=== PATIENT | male | born 1995 | race American Indian/Alaskan Native ===

== ENCOUNTER 2021-02-09 15:17 | Inpatient (IN) | payer OTHER ==
[2021-02-09] MEDS ORDERED: IPRATROPIUM 0.02% NEBU 2.5 ML IH ONE ×2 (15:28→15:34)
[2021-02-09] MEDS ORDERED: ALBUTEROL 2.5 MG/3 ML NEBU IH ONE ×4 (15:28→17:53)
[2021-02-09] MEDS ORDERED: MAGNESIUM SULFATE 2 GM/50 ML BAG IV ONE (15:34)
[2021-02-09] MEDS ORDERED: LACTATED RINGERS 1,000 ML IV ONE (15:34)
[2021-02-09] MEDS ORDERED: EPINEPHrine/PF 1 MG/1 ML INJ SUB-Q ONE ×2 (15:34→16:10)
[2021-02-09] MEDS ORDERED: methylPREDNISolone Sod Succinate 125 MG/2 ML INJ IV ONE (15:34)
--- NOTE | 2021-02-09 15:46 | Emergency Department Report ---
ED Asthma HPI - General Chief Complaint: Adult Asthma Stated Complaint: ASTHMA PUI?: No Time Seen by Provider: 02/09/21 15:29 Source: patient Mode of arrival: Ambulatory Limitations: No Limitations - History of Present Illness Initial Comments: The patient is a 25-year-old gentleman. He is not known to myself previously. He has a history of pediatric diagnosed asthma. He has been admitted while a child, but not as an adult. He has no lifetime history of intubations. He has a history of recreational cannabis consumption, but otherwise denies smoke ingestion. He has not received his COVID-19 vaccination. He presents to the ER with a chief complaint of asthma, cough, shortness of breath, wheezing. He has used his albuterol at home with some, but not complete improvement. He denies loss of taste, loss of smell, fever, and physical pain. Denies leg pain, leg swelling, physical pain, DVT and pulmonary embolism risk factors. Triggers for asthma include change of seasons, pollen, nonspecific allergens. He feels like this is similar to prior asthma exacerbations. MD Complaint: "asthma attack", shortness of breath, wheezing -: Gradual, days(s) Asthma History: childhood onset Severity: moderate, similar to prior Context: allergen exposure Associated Symptoms: dry cough Treatments Prior to Arrival: inhaled bronchodilator - Related Data Allergies Allergy/AdvReac Type Severity Reaction Status Date / Time No Known Allergies Allergy Unverified 02/09/21 15:20 ED Review of Systems ROS: Stated complaint: ASTHMA Other details as noted in HPI Constitutional: denies: fever Eyes: denies: eye discharge ENT: denies: epistaxis Respiratory: cough, shortness of breath, SOB with exertion, SOB at rest, wheezing Cardiovascular: denies: chest pain Musculoskeletal: denies: arthralgia Neurological: weakness Psychiatric: anxiety Hematological/Lymphatic: denies: easy bleeding ED Past Medical Hx - Past Medical History Previous Medical History?: Yes Hx Asthma: Yes ED Physical Exam - General Limitations: No Limitations General appearance: alert, anxious, in distress, obese - Head Head exam: Present: atraumatic, normocephalic - Eye Eye exam: Present: normal appearance, EOMI. Absent: nystagmus - ENT ENT exam: Present: normal exam, normal orophraynx, mucous membranes moist, normal external ear exam - Neck Neck exam: Present: normal inspection, full ROM. Absent: tenderness, meningismus - Respiratory Respiratory exam: Present: respiratory distress, wheezes, rhonchi, accessory muscle use - Cardiovascular Cardiovascular Exam: Present: normal rhythm, tachycardia, normal heart sounds. Absent: bradycardia, irregular rhythm, systolic murmur, diastolic murmur, rubs, gallop - GI/Abdominal GI/Abdominal exam: Present: soft. Absent: distended, tenderness, guarding, rebound, rigid, pulsatile mass - Rectal Rectal exam: Present: deferred - Extremities Exam Extremities exam: Present: normal inspection, full ROM, other (2+ pulses noted in the bilateral upper and lower extremities. There is no palpable cord. negative Homans sign. Muscular compartments are soft. The pelvis is stable.). Absent: pedal edema, calf tenderness - Back Exam Back exam: Present: normal inspection, full ROM. Absent: tenderness, CVA tenderness (R), CVA tenderness (L), paraspinal tenderness, vertebral tenderness - Neurological Exam Neurological exam: Present: alert, oriented X3, normal gait, other (No facial droop. Tongue midline. Extraocular movements intact bilaterally. Facial sensation intact to light touch in V1, V2, V3 distribution bilaterally. 5 and a 5 strength in 4 extremities. Sensation intact to light touch in 4 ext remities.). Absent: motor sensory deficit - Psychiatric Psychiatric exam: Present: anxious - Skin Skin exam: Present: warm, dry, intact, normal color. Absent: rash ED Course Vital Signs 02/09/21 02/09/21 02/09/21 15:23 15:33 17:54 Temperature 98.3 F Pulse Rate 114 H Pulse Rate [ 115 H Anterior Bilateral Throughout] Respiratory 30 H Rate Respiratory 26 H Rate [Anterior Bilateral Throughout] Blood Pressure 132/112 [Right] O2 Sat by Pulse 95 Oximetry O2 Sat by Pulse 91 Oximetry [ Digit-Finger] - Reevaluation(s) Reevaluation #1: 02/09/21 15:39 Differential diagnosis, including the not limited to: Asthma exacerbation, history of cannabis use Assessment and plan: 25-year-old gentleman, who is tachypneic and tachycardic, however, denies DVT and pulmonary embolism risk factors, who is low risk by Wells criteria for pulmonary embolism, with a known history of asthma and reactive airways disease, who is likely presenting with an asthma exacerbation. 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 Start albuterol, Atrovent, steroids, magnesium, and subcutaneous epinephrine. I have discussed this plan of care with the patient. He has articulated unders tanding. Reassess after initial interventions. 02/09/21 15:47 We appreciate that the patient meets systemic inflammatory response syndrome criteria. Do not suspect invasive bacterial infection. Suspect that physiologic abnormality secondary to acute asthma exacerbation. 02/09/21 16:19 Patient is still receiving albuterol Atrovent, but has completed steroids, magnesium infusion almost complete, and he is also received his epinephrine. He is still wheezing, tachypneic and short of breath. EKG, chest x-ray, laboratory studies, repeat subcutaneous epinephrine ordered. 02/09/21 17:53 Final reassessment. Patient has received epinephrine x2, albuterol, Atrovent, steroids and magnesium. His work of breathing has improved, however he is still wheezing, and still has accessory muscle use. Laboratory studies unremarkable. Chest x-ray reviewed and appreciated. Peak flow 130 LPM. Patient meets criteria for admission and hospitalization secondary to the aforementioned. I have discussed this plan of care with the patient. He is agreeable. Hospital physician is paged to arrange admission. 02/09/21 18:02 Dr Coelho to admit to [facility] - Pulse Oximetry Interpretation Digit-Finger Initial Pulse Oximetry Readin O2 Sat by Pulse Oximetry: 91 Actions Taken: other (placed on non rebreather) ED Medical Decision Making - Lab Data Result diagrams: 02/09/21 16:18 02/09/21 16:18 Vital Signs 02/09/21 15:23 Temperature 98.3 F Pulse Rate 114 H Respiratory 30 H Rate Blood Pressure 132/112 [Right] O2 Sat by Pulse 95 Oximetry - EKG Data -: EKG Interpreted by Tn EKG shows normal: sinus rhythm Rate: tachycardia - EKG Data When compared to previous EKG there are: previous EKG unavailable 02/09/21 16:31 The EKG is interpreted at 16: 25 Sinus rhythm, tachycardia, rate 105 bpm. There is a borderline rightward axis deviation, the QTC is 450 ms, there is no motion artifact. There is borderline poor R wave progression. This is an abnormal EKG. This is not a STEMI. There is no prior for comparison. - Radiology Data Radiology results: pending, report reviewed, image reviewed [facility] [address] [place] [address] XRay Report Signed Patient: DANNY TREJO MR#: [id number] : 1995 Acct:[id number] Age/Sex: 25 / M ADM Date: 02/09/21 Loc: ED Attending Dr: Ordering Physician: YAJAIRA SANCHEZ MD Date of Service: 02/09/21 Procedure(s): XR chest 1V ap Accession Number(s): [id number] cc: YAJAIRA SANCHEZ MD Fluoro Time In Minutes: CHEST 1 VIEW INDICATION: dyspnea asthma. COMPARISON: None. FINDINGS: Support devices: None. Heart: Normal. Lungs/Pleura: Streaky densities in the right suprahilar lung are likely atelectatic. Lungs are otherwise clear. No pleural abnormality. IMPRESSION: 1. Presumed atelectasis in the perihilar right upper lobe. Signer Name: Errol Singh MD Signed: 02/09/2021 5:39 PM Workstation Name: [id number] Transcribed By: MICHELLE Dictated By: Errol Singh MD Electronically Authenticated By: Errol Singh MD Signed Date/Time: 02/09/211738 DD/ 38 Critical Care Time: Yes Critical care time in (mins) excluding proc time.: 35 Critical care attestation.: If time is entered above; I have spent that time in minutes in the direct care of this critically ill patient, excluding procedure time. ED Disposition Clinical Impression: Asthma exacerbation Qualifiers: Asthma severity: severe Asthma persistence: unspecified Qualified Code(s): J45.901 - Unspecified asthma with (acute) exacerbation Disposition: OP ADMIT IP TO THIS HOSP Is pt being admited?: Yes Does the pt Need Aspirin: No Condition: Good Referrals: PRIMARY CARE, [Primary Care Provider] - 3-5 Days
[2021-02-09 16:38] LABS: Basophils % (Auto) 0.4 % (0.0-1.8); Eosinophils # (Auto) 0.3 K/mm3 (0.0-0.4); Eosinophils % (Auto) 4.2 % (0.0-4.3); Hematocrit 41.3 % (35.5-45.6); Hemoglobin 13.7 gm/dl (11.8-15.2); Lymphocytes # (Auto) 1.1 K/mm3 (1.2-5.4); Lymphocytes % (Auto) 15.9 % (13.4-35.0); Mean Corpuscular HGB Conc 33 % (32-34); Mean Corpuscular Volume 90 fl (84-94); Monocytes # (Auto) 0.4 K/mm3 (0.0-0.8); Monocytes % (Auto) 6.1 % (0.0-7.3); Platelet Count 187 K/mm3 (140-440); Red Blood Count 4.61 M/mm3 (3.65-5.03)
[2021-02-09 16:48] LABS: INR 0.92 (0.87-1.13)
[2021-02-09 16:59] LABS: BUN/Creatinine Ratio 7; Blood Urea Nitrogen 8 mg/dL (9-20); Calcium 8.3 mg/dL (8.4-10.2); Hemolysis Index 12
--- NOTE | 2021-02-09 17:44 | XRay Report ---
CHEST 1 VIEW INDICATION: dyspnea asthma. COMPARISON: None. FINDINGS: Support devices: None. Heart: Normal. Lungs/Pleura: Streaky densities in the right suprahilar lung are likely atelectatic. Lungs are otherw ise clear. No pleural abnormality. IMPRESSION: 1. Presumed atelectasis in the perihilar right upper lobe. Signer Name: Errol Singh MD Signed: 02/09/2021 5:39 PM Workstation Name: [email or web address]
[2021-02-09] MEDS ORDERED: HYDROmorphone 1 MG/1 ML INJ IV PRN (19:10)
[2021-02-09] MEDS ORDERED: METOCLOPRAMIDE 10 MG/2 ML INJ IV PRN (19:10)
[2021-02-09] MEDS ORDERED: ONDANSETRON 4 MG/2 ML INJ IV PRN (19:10)
[2021-02-09] MEDS ORDERED: ACETAMINOPHEN 325 MG TAB PO PRN (19:10)
--- NOTE | 2021-02-09 19:10 | History and Physical Report ---
History of Present Illness Date of examination: 02/09/21 Date of admission: 02/09/21 18:02 Chief complaint: Increasing wheezing and shortness of breath for 2 days History of present illness: 25-year-old -Mong[place]ian male with history of asthma since childhood and was been admitted a couple of times in the past comes in for increasing shortness of breath and wheezing for the last 2 days. Not improving with nebulizers/inhalers. Cough productive of mucoid sputum. No fever or chills. No body aches. No loss of smell. Triggers for asthma include change of seasons and the pollen and nonspecific allergens. Patient takes Singulair for prevention of asthma. Patient has a nebulizer machine at home. - Past Medical History Previous Medical History?: Yes --Asthma: Yes Past surgical history No Family history Htn Social history No smoking or alcohol Review of Systems ROS: Stated complaint: ASTHMA Other details as noted in HPI Constitutional: denies: fever Eyes: denies: eye discharge ENT: denies: epistaxis Respiratory: cough, shortness of breath, SOB with exertion, SOB at rest, wheezing Cardiovascular: denies: chest pain Musculoskeletal: denies: arthralgia Neurological: weakness Psychiatric: anxiety Hematological/Lymphatic: denies: easy bleeding Medications and Allergies Allergies Allergy/AdvReac Type Severity Reaction Status Date / Time No Known Allergies Allergy Unverified 02/09/21 15:20 Exam - Constitutional Vitals: Temp Pulse Resp BP Pulse Ox 98.3 F 115 H 26 H 132/112 91 02/09/21 15:23 02/09/21 15:33 02/09/21 15:33 02/09/21 15:23 02/09/21 18:02 General appearance: Present: mild distress, well-nourished - EENT Eyes: Present: PERRL ENT: hearing intact, clear oral mucosa - Neck Neck: Present: supple, normal ROM - Respiratory Respiratory effort: normal Respiratory: bilateral: CTA, rhonchi, wheezing - Cardiovascular Heart rate: 78 Rhythm: regular Heart Sounds: Present: S1 & S2. Absent: rub, click - Extremities Extremities: pulses symmetrical, No edema Peripheral Pulses: within normal limits - Abdominal General gastrointestinal: Present: soft, non-tender, non-distended, normal bowel sounds Male genitourinary: Present: normal - Rectal Rectal Exam: deferred - Integumentary Integumentary: Present: clear, warm, dry - Musculoskeletal Musculoskeletal: gait normal, strength equal bilaterally - Psychiatric Psychiatric: appropriate mood/affect, intact judgment & insight - Neurologic Neurologic: CNII-XII intact, moves all extremities Results - Labs CBC & Chem 7: 02/09/21 16:18 02/09/21 16:18 Labs: Laboratory Last Values WBC 6.6 K/mm3 (4.5-11.0) 02/09/21 16:18 RBC 4.61 M/mm3 (3.65-5.03) 02/09/21 16:18 Hgb 13.7 gm/dl (11.8-15.2) 02/09/21 16:18 Hct 41.3 % (35.5-45.6) 02/09/21 16:18 MCV 90 fl (84-94) 02/09/21 16:18 MCH 30 pg (28-32) 02/09/21 16:18 MCHC 33 % (32-34) 02/09/21 16:18 RDW 16.0 % (13.2-15.2) H 02/09/21 16:18 Plt Count 187 K/mm3 (140-440) 02/09/21 16:18 Lymph % (Auto) 15.9 % (13.4-35.0) 02/09/21 16:18 [place] % (Auto) 6.1 % (0.0-7.3) 02/09/21 16:18 Eos % (Auto) 4.2 % (0.0-4.3) 02/09/21 16:18 Baso % (Auto) 0.4 % (0.0-1.8) 02/09/21 16:18 Lymph # (Auto) 1.1 K/mm3 (1.2-5.4) L 02/09/21 16:18 [place] # (Auto) 0.4 K/mm3 (0.0-0.8) 02/09/21 16:18 Eos # (Auto) 0.3 K/mm3 (0.0-0.4) 02/09/21 16:18 Baso # (Auto) 0.0 K/mm3 (0.0-0.1) 02/09/21 16:18 Seg Neutrophils % 73.4 % (40.0-70.0) H 02/09/21 16:18 Seg Neutrophils # 4.9 K/mm3 (1.8-7.7) 02/09/21 16:18 PT 12.9 Sec. (12.2-14.9) 02/09/21 16:18 INR 0.92 (0.87-1.13) 02/09/21 16:18 Sodium 140 mmol/L (137-145) 02/09/21 16:18 Potassium 3.8 mmol/L (3.6-5.0) 02/09/21 16:18 Chloride 104.7 mmol/L (98-107) 02/09/21 16:18 Carbon Dioxide 25 mmol/L (22-30) 02/09/21 16:18 Anion Gap 14 mmol/L 02/09/21 16:18 BUN 8 mg/dL (9-20) L 02/09/21 16:18 Creatinine 1.1 mg/dL (0.8-1.3) 02/09/21 16:18 Estimated GFR > 60 ml/min 02/09/21 16:18 BUN/Creatinine Ratio 7 % 02/09/21 16:18 Glucose 93 mg/dL (75-100) 02/09/21 16:18 Calcium 8.3 mg/dL (8.4-10.2) L 02/09/21 16:18 Magnesium 2.40 mg/dL (1.7-2.3) H 02/09/21 16:18 Total Creatine Kinase 390 units/L (55-170) H 02/09/21 16:18 Short CBC 02/09/21 Range/Units 16:18 WBC 6.6 (4.5-11.0) K/mm3 Hgb 13.7 (11.8-15.2) gm/dl Hct 41.3 (35.5-45.6) % Plt Count 187 (140-440) K/mm3 BMP 02/09/21 16:18 Sodium 140 Potassium 3.8 Chloride 104.7 Carbon Dioxide 25 BUN 8 L Creatinine 1.1 Glucose 93 Calcium 8.3 L Cardiac Enzymes 02/09/21 Range/Units 16:18 Total Creatine Kinase 390 H (55-170) units/L Assessment and Plan Advance Directives: Yes (Full code) VTE prophylaxis?: Chemical Plan of care discussed with patient/family: Yes - Patient Problems (1) Acute respiratory failure with hypoxia Current Visit: Yes Status: Acute Plan to address problem: Patient was initially hypoxic. On oxygen supplementation. Patient also tachypneic. (2) Asthma exacerbation Current Visit: Yes Status: Acute Qualifiers: Asthma severity: severe Asthma persistence: unspecified Qualified Code(s): J45.901 - Unspecified asthma with (acute) exacerbation Plan to address problem: Patient admitted as observation Patient initiated on DuoNeb's [id number] and as needed and also IV Levaquin and IV Solu-Medrol 60 mg every 8 hours Patient also initiated on Singulair 10 mg once a day for prevention of asthma attacks (3) Hypertension Current Visit: Yes Status: Chronic Qualifiers: Hypertension type: primary hypertension Qualified Code(s): I10 - Essential (primary) hypertension Plan to address problem: Blood pressure was high--132/112 Patient initiated on valsartan 160 mg once a day (4) DVT prophylaxis Current Visit: Yes Status: Acute Plan to address problem: On heparin and GI prophylaxis
[2021-02-09] MEDS ORDERED: IPRATROPIUM/ALBUTEROL SULFATE 3 ML AMPUL.NEB IH PRN (19:16)
[2021-02-09] MEDS: HEPARIN 5,000 UNIT/1 ML VIAL SUB-Q SCH (21:21)
[2021-02-09] MEDS: oxyCODONE /ACETAMINOPHEN 5-325MG TAB PO PRN (21:23)
[2021-02-09] MEDS: methylPREDNISolone Sod Succinate 125 MG/2 ML INJ IV SCH (21:26)
[2021-02-09] MEDS: MONTELUKAST 10 MG TAB PO SCH (21:30)
[2021-02-09] MEDS: SODIUM CHLORIDE 0.9% 1000 ML 1,000 ML IV SCH (21:32)
[2021-02-09] MEDS ORDERED: FAMOTIDINE 20 MG/2 ML INJ IV SCH (22:00)
[2021-02-09] MEDS: IPRATROPIUM/ALBUTEROL SULFATE 3 ML AMPUL.NEB IH SCH (22:12)
[2021-02-09] MEDS: VALSARTAN 160MG TAB PO SCH (23:37)
[2021-02-10] MEDS: ALBUTEROL 2.5 MG/3 ML NEBU IH PRN ×2 (03:18→22:35)
[2021-02-10] MEDS: methylPREDNISolone Sod Succinate 125 MG/2 ML INJ IV SCH (06:04)
[2021-02-10] MEDS: SODIUM CHLORIDE 0.9% 1000 ML 1,000 ML IV SCH ×2 (06:52→16:19)
[2021-02-10 08:01] LABS: Basophils % (Auto) 0.1 % (0.0-1.8); Hemoglobin 13.3 gm/dl (11.8-15.2); Lymphocytes # (Auto) 0.6 K/mm3 (1.2-5.4); Lymphocytes % (Auto) 9.8 % (13.4-35.0); Mean Corpuscular HGB Conc 33 % (32-34); Mean Corpuscular Volume 88 fl (84-94); Monocytes # (Auto) 0.2 K/mm3 (0.0-0.8); Monocytes % (Auto) 3.1 % (0.0-7.3); Platelet Count 214 K/mm3 (140-440); Red Blood Count 4.65 M/mm3 (3.65-5.03); Red Cell Distribution Width 16.2 % (13.2-15.2)
[2021-02-10] MEDS: IPRATROPIUM/ALBUTEROL SULFATE 3 ML AMPUL.NEB IH SCH ×4 (08:19→20:30)
[2021-02-10 08:28] LABS: Alanine Aminotransferase 20 units/L (7-56); BUN/Creatinine Ratio 7; Blood Urea Nitrogen 6 mg/dL (9-20); Hemolysis Index 2
[2021-02-10] MEDS: FAMOTIDINE 20 MG TAB PO SCH ×2 (10:18→22:44)
[2021-02-10] MEDS: HEPARIN 5,000 UNIT/1 ML VIAL SUB-Q SCH ×2 (10:19→22:44)
[2021-02-10] MEDS: VALSARTAN 160MG TAB PO SCH (10:19)
--- NOTE | 2021-02-10 10:20 | Electrocardiograph Report ---
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
--- NOTE | 2021-02-10 14:15 | Progress Note ---
Assessment and Plan Assessment and plan: 25-year-old -[place] male with history of asthma since childhood and was been admitted a couple of times in the past comes in for increasing shortness of breath and wheezing for the last 2 days. Not improving with nebulizers/inhalers. Cough productive of mucoid sputum. No fever or chills. No body aches. No loss of smell. Triggers for asthma include change of seasons and the pollen and nonspecific allergens. Patient takes Singulair for prevention of asthma. Patient has a nebulizer machine at home. (1) Acute respiratory failure with hypoxia Current Visit: Yes Status: Acute Plan to address problem: Patient was initially hypoxic. On oxygen supplementation. Patient also tachypneic. (2) Asthma exacerbation Current Visit: Yes Status: Acute Qualifiers: Asthma severity: severe Asthma persistence: unspecified Qualified Code(s): J45.901 - Unspecified asthma with (acute) exacerbation Plan to address problem: Patient admitted as observation Patient initiated on DuoNeb's hsqcjb-tan-[id number] and as needed and also IV Levaquin and IV Solu-Medrol 60 mg every 8 hours Patient also initiated on Singulair 10 mg once a day for prevention of asthma attacks (3) Hypertension Current Visit: Yes Status: Chronic Qualifiers: Hypertension type: primary hypertension Qualified Code(s): I10 - Essential (primary) hypertension Plan to address problem: Blood pressure was high--132/112 Patient initiated on valsartan 160 mg once a day (4) DVT prophylaxis Current Visit: Yes Status: Acute Plan to address problem: On heparin and GI prophylaxis 02/10: We will do a Covid test per patient's request. We will taper IV steroids gradually and hopefully convert to p.o. in a.m. Counseling provided on need to get the Covid vaccine Anticipate discharge tomorrow Home O2 evaluation today Wean oxygen as tolerated. History Interval history: Patient seen and examined still not at baseline still wheezing still short of breath. States he did not get the Covid vaccine because he does not trust the vaccine. Hospitalist Physical - Physical exam Narrative exam: General appearance: Present: Still with mild distress, well-nourished - EENT Eyes: Present: PERRL ENT: hearing intact, clear oral mucosa - Neck Neck: Present: supple, normal ROM - Respiratory Respiratory effort: normal Respiratory: bilateral: CTA, rhonchi, wheezing - Cardiovascular Heart rate: 78 Rhythm: regular Heart Sounds: Present: S1 & S2. Absent: rub, click - Extremities Extremities: pulses symmetrical, No edema Peripheral Pulses: within normal limits - Abdominal General gastrointestinal: Present: soft, non-tender, non-distended, normal bowel sounds Male genitourinary: Present: normal - Rectal Rectal Exam: deferred - Integumentary Integumentary: Present: clear, warm, dry - Musculoskeletal Musculoskeletal: gait normal, strength equal bilaterally - Psychiatric Psychiatric: appropriate mood/affect, intact judgment & insight - Neurologic Neurologic: CNII-XII intact, moves all extremities - Constitutional Vitals: Temp Pulse Resp BP Pulse Ox 98.3 F 84 18 117/54 93 02/10/21 05:15 02/10/21 10:19 02/10/21 09:56 02/10/21 10:19 02/10/21 09:56 General appearance: Present: mild distress, well-nourished Results - Labs CBC & Chem 7: 02/10/21 07:15 02/10/21 07:15 Labs: Laboratory Last Values WBC 6.2 K/mm3 (4.5-11.0) 02/10/21 07:15 RBC 4.65 M/mm3 (3.65-5.03) 02/10/21 07:15 Hgb 13.3 gm/dl (11.8-15.2) 02/10/21 07:15 Hct 41.0 % (35.5-45.6) 02/10/21 07:15 MCV 88 fl (84-94) 02/10/21 07:15 MCH 29 pg (28-32) 02/10/21 07:15 MCHC 33 % (32-34) 02/10/21 07:15 RDW 16.2 % (13.2-15.2) H 02/10/21 07:15 Plt Count 214 K/mm3 (140-440) 02/10/21 07:15 Lymph % (Auto) 9.8 % (13.4-35.0) L 02/10/21 07:15 [place] % (Auto) 3.1 % (0.0-7.3) 02/10/21 07:15 Eos % (Auto) 0.0 % (0.0-4.3) 02/10/21 07:15 Baso % (Auto) 0.1 % (0.0-1.8) 02/10/21 07:15 Lymph # (Auto) 0.6 K/mm3 (1.2-5.4) L 02/10/21 07:15 [place] # (Auto) 0.2 K/mm3 (0.0-0.8) 02/10/21 07:15 Eos # (Auto) 0.0 K/mm3 (0.0-0.4) 02/10/21 07:15 Baso # (Auto) 0.0 K/mm3 (0.0-0.1) 02/10/21 07:15 Seg Neutrophils % 87.0 % (40.0-70.0) H 02/10/21 07:15 Seg Neutrophils # 5.4 K/mm3 (1.8-7.7) 02/10/21 07:15 PT 12.9 Sec. (12.2-14.9) 02/09/21 16:18 INR 0.92 (0.87-1.13) 02/09/21 16:18 Sodium 139 mmol/L (137-145) 02/10/21 07:15 Potassium 4.5 mmol/L (3.6-5.0) 02/10/21 07:15 Chloride 104.1 mmol/L (98-107) 02/10/21 07:15 Carbon Dioxide 23 mmol/L (22-30) 02/10/21 07:15 Anion Gap 16 mmol/L 02/10/21 07:15 BUN 6 mg/dL (9-20) L 02/10/21 07:15 Creatinine 0.9 mg/dL (0.8-1.3) 02/10/21 07:15 Estimated GFR > 60 ml/min 02/10/21 07:15 BUN/Creatinine Ratio 7 % 02/10/21 07:15 Glucose 125 mg/dL (75-100) H 02/10/21 07:15 Calcium 9.0 mg/dL (8.4-10.2) 02/10/21 07:15 Magnesium 2.40 mg/dL (1.7-2.3) H 02/09/21 16:18 Total Bilirubin 0.40 mg/dL (0.1-1.2) 02/10/21 07:15 AST 21 units/L (5-40) 02/10/21 07:15 ALT 20 units/L (7-56) 02/10/21 07:15 Alkaline Phosphatase 91 units/L (35-129) 02/10/21 07:15 Total Creatine Kinase 390 units/L (55-170) H 02/09/21 16:18 Total Protein 7.0 g/dL (6.3-8.2) 02/10/21 07:15 Albumin 4.0 g/dL (3.9-5) 02/10/21 07:15 Albumin/Globulin Ratio 1.3 % 02/10/21 07:15 Nasal Screen MRSA (PCR) Negative (Negative) 02/09/21 Unknown [place]/IV: Voiding Method Toilet Active Medications - Current Medications Current Medications: Generic Name Dose Route Start Last Admin Trade Name Freq PRN Reason Stop Dose Admin Acetaminophen 650 mg 02/09/21 19:10 Acetaminophen 325 Mg Tab PO Q4H PRN Pain MILD(1-3)/Fever >100.5/DRAPER Albuterol 2.5 mg 02/09/21 19:42 02/10/21 03:18 Albuterol 2.5 Mg/3 Ml Nebu IH 2.5 mg Q3HRT PRN Administration Shortness Of Breath Albuterol/Ipratropium 1 ampul 02/09/21 20:00 02/10/21 08:19 Ipratropium/Albuterol Sulfate 3 Ml Ampul.Neb IH 1 ampul QIDRT CECELIA Administration Famotidine 20 mg 02/10/21 10:00 02/10/21 10:18 Famotidine 20 Mg Tab PO 20 mg BID CECELIA Administration Heparin Sodium (Porcine) 5,000 unit 02/09/21 22:00 02/10/21 10:19 Heparin 5,000 Unit/1 Ml Vial SUB-Q 5,000 unit Q12HR CECELIA Administration Hydromorphone HCl 0.5 mg 02/09/21 19:10 Hydromorphone 1 Mg/1 Ml Inj IV Q3H PRN Pain , Severe (7-10) Sodium Chloride 1,000 mls @ 75 mls/hr 02/09/21 19:15 02/10/21 06:52 Nacl 0.9% 1000 Ml IV 75 mls/hr DIRECT CECELIA Administration Levofloxacin/Dextrose 750 mg in 150 mls @ 100 mls/hr 02/09/21 20:00 02/10/21 10:18 Levaquin 750mg/150ml IV 02/13/21 11:29 100 mls/hr Q24HR CECELIA Administration Protocol Methylprednisolone Sodium Succinate 60 mg 02/09/21 22:00 02/10/21 06:04 Methylprednisolone Sod Succinate 125 Mg/2 Ml Inj IV 60 mg Q8HR CECELIA Administration Metoclopramide HCl 10 mg 02/09/21 19:10 Metoclopramide 10 Mg/2 Ml Inj IV Q6H PRN Nausea And Vomiting Montelukast Sodium 10 mg 02/09/21 22:00 02/09/21 21:30 Montelukast 10 Mg Tab PO 10 mg QHS CECELIA Administration Ondansetron HCl 4 mg 02/09/21 19:10 Ondansetron 4 Mg/2 Ml Inj IV Q8H PRN Nausea And Vomiting Oxycodone/Acetaminophen 1 tab 02/09/21 19:10 02/09/21 21:23 Oxycodone /Acetaminophen 5-325mg Tab PO 1 tab Q6H PRN Administration Pain, Moderate (4-6) Sodium Chloride 10 ml 02/09/21 22:00 02/10/21 10:19 Sodium Chloride 0.9% 10 Ml Flush Syringe IV 10 ml BID CECELIA Administration Sodium Chloride 10 ml 02/09/21 19:10 Sodium Chloride 0.9% 10 Ml Flush Syringe IV PRN PRN LINE FLUSH Valsartan 160 mg 02/09/21 20:00 02/10/21 10:19 Valsartan 160mg Tab PO Not Given DAILY CECELIA
[2021-02-10] MEDS ORDERED: methylPREDNISolone Sod Succinate 125 MG/2 ML INJ IV SCH (14:16)
[2021-02-10] MEDS: methylPREDNISolone Sod Succinate 40 MG/1 ML INJ IV SCH ×2 (14:54→22:44)
[2021-02-10] MEDS: MONTELUKAST 10 MG TAB PO SCH (22:45)
[2021-02-11] MEDS: ALBUTEROL 2.5 MG/3 ML NEBU IH PRN (01:20)
[2021-02-11] MEDS: methylPREDNISolone Sod Succinate 40 MG/1 ML INJ IV SCH ×2 (05:14→14:42)
[2021-02-11] MEDS: SODIUM CHLORIDE 0.9% 1000 ML 1,000 ML IV SCH (05:14)
[2021-02-11] MEDS: IPRATROPIUM/ALBUTEROL SULFATE 3 ML AMPUL.NEB IH SCH (08:11)
[2021-02-11] MEDS ORDERED: ALBUTEROL 2.5 MG/3 ML NEBU IH PRN (08:20)
[2021-02-11] MEDS ORDERED: BUDESONIDE 0.5 MG/2 ML NEBU IH SCH (08:30)
[2021-02-11] MEDS ORDERED: ARFORMOTEROL 15 MCG/2 ML NEBU IH SCH (08:30)
[2021-02-11] MEDS: VALSARTAN 160MG TAB PO SCH (10:36)
[2021-02-11] MEDS: FAMOTIDINE 20 MG TAB PO SCH (10:37)
[2021-02-11] MEDS: HEPARIN 5,000 UNIT/1 ML VIAL SUB-Q SCH (10:37)
[2021-02-11] MEDS: oxyCODONE /ACETAMINOPHEN 5-325MG TAB PO PRN (10:38)
--- NOTE | 2021-02-11 10:53 | Discharge Summary ---
Providers - Providers Date of Admission: 02/10/21 12:32 Attending physician: CAROLINA ALEXANDRA MD Primary care physician: [employer] Hospitalization Reason for admission: Shortness of breath Condition: Stable Hospital course: 25-year-old -[place] male with history of asthma since childhood and was been admitted a couple of times in the past comes in for increasing shortness of breath and wheezing for the last 2 days. Not improving with nebulizers/inhalers. Cough productive of mucoid sputum. No fever or chills. No body aches. No loss of smell. Triggers for asthma include change of seasons and the pollen and nonspecific allergens. Patient takes Singulair for prevention of asthma. Patient has a nebulizer machine at home. (1) Acute respiratory failure with hypoxia Current Visit: Yes Status: Acute Plan to address problem: Patient was initially hypoxic. On oxygen supplementation. Patient also tachypneic. (2) Asthma exacerbation Current Visit: Yes Status: Acute Qualifiers: Asthma severity: severe Asthma persistence: unspecified Qualified Code(s): J45.901 - Unspecified asthma with (acute) exacerbation Plan to address problem: Patient admitted as observation Patient initiated on DuoNeb's [id number] and as needed and also IV Levaquin and IV Solu-Medrol 60 mg every 8 hours Patient also initiated on Singulair 10 mg once a day for prevention of asthma attacks (3) Hypertension Current Visit: Yes Status: Chronic Qualifiers: Hypertension type: primary hypertension Qualified Code(s): I10 - Essential (primary) hypertension Plan to address problem: Blood pressure was high--132/112 Patient initiated on valsartan 160 mg once a day (4) DVT prophylaxis Current Visit: Yes Status: Acute Plan to address problem: On heparin and GI prophylaxis 02/10: We will do a Covid test per patient's request. We will taper IV steroids gradually and hopefully convert to p.o. in a.m. Counseling provided on need to get the Covid vaccine Anticipate discharge tomorrow Home O2 evaluation today Wean oxygen as tolerated. 02/11: Patient this morning shows remarkable improvement. Room air saturation is 95% no further wheezing noted. Covid test is negative. He tells me today that he is having discomfort in his chest that has been going on for weeks worse when he lays down and sometimes wakes up with nausea and vomiting. He is able to keep his food down today. He says this is intermittent. Sometimes he has burning sensation. I discussed possibility of GI sources of recommended outpatient work-up. He verbalized understanding I also discussed tobacco cessation patient verbalized understanding 15 minutes of counseling provided he will quit tobacco use Disposition: [id number] TO HOME OR SELFCARE Final Discharge Diagnosis (Prints w/discharge instructions): Acute asthma ex acerbation Time spent for discharge: 35 minutes Core Measure Documentation - Palliative Care Palliative Care/ Comfort Measures: Not Applicable - Core Measures Any of the following diagnoses?: none Exam - Physical Exam Narrative exam: General appearance: Present: Resting comfortably well nourished no acute distress - EENT Eyes: Present: PERRL ENT: hearing intact, clear oral mucosa - Neck Neck: Present: supple, normal ROM - Respiratory Respiratory effort: normal Respiratory: bilateral: Clear to auscultation bilaterally - Cardiovascular Heart rate: 78 Rhythm: regular Heart Sounds: Present: S1 & S2. Absent: rub, click - Extremities Extremities: pulses symmetrical, No edema Peripheral Pulses: within normal limits - Abdominal General gastrointestinal: Present: soft, non-tender, non-distended, normal bowel sounds Male genitourinary: Present: normal - Rectal Rectal Exam: deferred - Integumentary Integumentary: Present: clear, warm, dry - Musculoskeletal Musculoskeletal: gait normal, strength equal bilaterally - Psychiatric Psychiatric: appropriate mood/affect, intact judgment & insight - Neurologic Neurologic: CNII-XII intact, moves all extremities - Constitutional Vitals: Temp Pulse Resp BP Pulse Ox 98.5 F 69 18 104/60 96 02/11/21 05:10 02/11/21 08:11 02/11/21 08:11 02/11/21 05:10 02/11/21 08:17 Plan Activity: advance as tolerated, fall precautions Diet: low fat Special Instructions: smoking cessation Follow up with: PRIMARY CARE, [Primary Care Provider] - 3-5 Days MALCOLM CARRILLO MD [Staff Physician] - 7 Days Forms: Work/School Release Form Prescriptions: Fluticasone/Salmeterol [Advair Diskus 250-50 mcg] 1 each IH QHS #1 Valsartan [Diovan] 160 mg PO DAILY #30 tablet Famotidine [Pepcid] 20 mg PO BID #60 tablet Prednisone [predniSONE 10 mg (6-Day Pack, 21 Tabs)] 10 mg PO .TAPER #1 tab.ds.pk Albuterol Mdi (or & Nicu Only) [ProAir HFA Inhaler] 2 puff IH QID PRN #8.5 gram PRN Reason: Shortness Of Breath Montelukast [Singulair] 10 mg PO QPM #1 Ipratropium/Albuterol Sulfate [DUONEB *Not for PRN Use*] 1 ampul IH TIDRT #120 ampul.neb Other Discharge Orders: Nebulizer (Amb) Location: None Selected
[2021-02-11 12:44] VITALS: BP 111/62
[2021-02-11] MEDS ORDERED: IPRATROPIUM/ALBUTEROL SULFATE 3 ML AMPUL.NEB IH SCH (14:00)
== END 2021-02-11 16:45 | disposition home or self-care (01) | DRG 189 ==
LOC: ED 15:17 → 3A 18:02 → OBSVTOIN 02-10 12:32 → 3A 02-10 18:52
PROVIDERS: ADMIT Internal Medicine; ATTEND Internal Medicine
DX: J96.01 Acute respiratory failure with hypoxia (principal); J45.901 Unspecified asthma with (acute) exacerbation; F41.9 Anxiety disorder, unspecified; I10 Essential (primary) hypertension; Z20.822 Contact with and (suspected) exposure to COVID-19
CPT/HCPCS: 36415; 71045; 80048; 80053; 82550; 83735; 85025; 85610; 87641; 93005; 94640; 94644; G0378; J0171; J1644; J1956; J2920; J2930; J3475; J7030; J7120; U0003